=== PATIENT | female | born 1990 | race Caucasian/White ===

== ENCOUNTER 2016-10-05 14:43 | Inpatient (IN) | payer BC ==
[2016-10-05] MEDS ORDERED: ONDANSETRON HCL/PF 2 MG/ML VIAL IV PRN (17:25)
[2016-10-05] MEDS ORDERED: RINGER'S SOLUTION,LACTATED 1,000 ML IV PRN (17:25)
[2016-10-05] MEDS ORDERED: DEXTROSE 5%-LACTATED RINGERS 1,000 ML IV PRN (17:25)
[2016-10-05] MEDS ORDERED: BUTORPHANOL TARTRATE 2 MG/ML VIAL IV PRN (17:25)
[2016-10-05] MEDS ORDERED: LIDOCAINE HCL 50 ML VIAL PERI PRN (17:25)
[2016-10-05] MEDS ORDERED: OXYTOCIN/DEXTROSE 5%-WATER 30 UNITS/500 ML BAG IV ONE (17:25)
[2016-10-06] MEDS ORDERED: oxyCODONE HCL/ACETAMINOPHEN 1 TAB TABLET PO PRN ×2 (01:42)
[2016-10-06] MEDS ORDERED: BENZOCAINE/MENTHOL 81 SPRAY CAN TP PRN (01:42)
[2016-10-06] MEDS ORDERED: IBUPROFEN 800 MG TABLET PO PRN (01:42)
[2016-10-06] MEDS ORDERED: HYDROCORTISONE 30 APPL TUBE TP PRN (01:42)
[2016-10-06] MEDS ORDERED: OXYTOCIN/DEXTROSE 5%-WATER 30 UNITS/500 ML BAG IV ONE (01:42)
[2016-10-06] MEDS ORDERED: BISACODYL 10 MG SUPP.RECT RC PRN (01:42)
[2016-10-06] MEDS ORDERED: SENNOSIDES 8.6 MG TABLET PO PRN (01:42)
[2016-10-06] MEDS ORDERED: GLYCERIN/WITCH HAZEL LEAF 40 APPL BOX TP PRN (01:42)
--- NOTE | 2016-10-06 01:46 | OR ---
Operative Report - Dictated Report Narrative: Spontaneous Vaginal Delivery Viable female with APGARS of 5 at 1 minute and 8 at 5 minutes. Presentation was ALICJA. No nuchal cord was noted. The left anterior shoulder delivered with gentle downward traction followed by the remainder of the baby. Thick meconium was noted after delivery of the baby's head. Cord was then clamped and cut and baby was taken to the warmer. Time of delivery was 0 117. Weight: 2B determined Placenta was delivered spontaneously and intact. No lacerations were noted. Estimated blood loss: 200 ml Mother and baby tolerated delivery well. History for Definition: * The number of deliveries resulting in a live the patient experienced prior to current hospitalization * The previous delivery of live twins or any live multiple gestation is considered one live event. *If primagravida or nulliparous is documented select zero for the number of previous live births. Live Events: 0
[2016-10-06] MEDS: DOCUSATE SODIUM 100 MG CAPSULE PO SCH ×2 (09:44→20:52)
[2016-10-07] MEDS: DOCUSATE SODIUM 100 MG CAPSULE PO SCH ×2 (09:30→20:32)
--- NOTE | 2016-10-07 12:50 | PN ---
Subjective - Date and Time Seen Date: 10/07/16 Subjective Narrative: day 1, s/p doing well. no complaints. breastfedding. normal lochia. Objective - Vitals Vitals: Last Vital Signs Temp 36.7 C 10/07/16 07:06 Pulse 71 10/07/16 07:06 Resp 18 10/07/16 07:06 BP 125/73 10/07/16 07:06 Pulse Ox 98 10/07/16 07:06 - Exam Constitutional: Present: Alert, Oriented x3, Cooperative Respiratory: Present: no respiratory distress Cardiovascular/Chest: Present: normal peripheral pulses Abdomen: Present: soft, nontender, nondistended, other - fundus firm at umbilicus. Extremity: Present: normal range of motion, no pedal edema, no calf tenderness Skin Exam: Present: normal color, warm/dry, no cyanosis Eye contact: Present: cooperative, good eye contact, normal speech Assessment/Plan Plan Narrative: A: day 1, s/p doing well. Plan: routine care. ambulation encouraged. Fabiola Toscano MD
--- NOTE | 2016-10-08 08:57 | PN ---
Progess Note - Interim Narrative: 10/08/16 08:56 progress note Subjective: The patient is doing well. She is ambulating, voiding, tolerating by mouth. She has minimal pain and moderate lochia. Objective: General: No acute distress Abdomen: Soft, nontender, fundus is firm just below the umbilicus Extremities: minimal edema, nontender to palpation Assessment and plan: day 2 Feeding: Breast Pain: Controlled with by mouth medication control: Undecided Routine care.
[2016-10-08] MEDS: DOCUSATE SODIUM 100 MG CAPSULE PO SCH ×2 (09:40→20:07)
[2016-10-08 21:17] VITALS: BP 141/83
== END 2016-10-08 23:52 | disposition home or self-care (01) | DRG 775 ==
LOC: OBCLINIC 14:43 → UNDOADMIN 17:00 → OB 17:00 → UNDOADMIN 10-06 02:06 → OB 10-06 02:06 → MS 10-07 17:47
PROVIDERS: ADMIT Obstetrics & Gynecology Gynecologic Oncology; ATTEND Obstetrics & Gynecology Gynecologic Oncology
PROC: 10E0XZZ Delivery of Products of Conception, External Approach (ICD-10-PCS; principal; 2016-10-06)
PROC: 4A1HXCZ Monitoring of Products of Conception, Cardiac Rate, External Approach (ICD-10-PCS; 2016-10-06)
DX: O80 Encounter for full-term uncomplicated delivery (principal); Z3A.40 40 weeks gestation of pregnancy; Z37.0 Single live birth

== ENCOUNTER 2019-08-08 10:40 | Inpatient (IN) ==
[2019-08-08] MEDS ORDERED: ONDANSETRON 4 MG TAB.RAPDIS PO PRN (18:54)
[2019-08-08] MEDS ORDERED: RINGER'S SOLUTION,LACTATED 1,000 ML IV PRN (18:54)
[2019-08-08] MEDS ORDERED: BUTORPHANOL TARTRATE 2 MG/ML VIAL IV PRN ×2 (18:54)
[2019-08-08] MEDS ORDERED: LIDOCAINE HCL 50 ML VIAL PERI PRN (18:54)
[2019-08-08] MEDS ORDERED: RINGER'S SOLUTION,LACTATED 1,000 ML IV ONE (18:54)
[2019-08-08] MEDS ORDERED: OXYTOCIN/DEXTROSE 5%-WATER 30 UNITS/500 ML BAG IV ONE (18:54)
[2019-08-08 19:26] LABS: Cocaine Ur Negative (NEGATIVE); Urine Barbiturate Negative (NEGATIVE); Urine Benzodiazepines Negative (NEGATIVE); Urine Opiates Negative (NEGATIVE); Urine PCP Negative (NEGATIVE); Urine THC Negative (NEGATIVE)
[2019-08-08] MEDS: MISOPROSTOL 100 MCG TABLET VG PRN ×2 (19:28→23:54)
[2019-08-09] MEDS: MISOPROSTOL 100 MCG TABLET VG PRN (03:50)
[2019-08-09] MEDS ORDERED: MISOPROSTOL 100 MCG TABLET VG ONE ×2 (07:53→12:06)
--- NOTE | 2019-08-09 10:05 | HP ---
Chief Complaint - Chief Complaint Date of Service: 08/09/19 Time of Service: 09:54 Chief Complaint: Induction History of Present Illness: 29 year old at 37w 2d who presents to L&D for a medical induction of labor for Anti-k antibody. She is not feeling ctx. She denies vb or lof. Fetus is active. Medical History (Last Reviewed 08/09/19 @ 09:59 by Angie Castorena MD) Abnormal antibody titer Onset Date: ~2017 Anti K Conjunctivitis Onset Date: Unknown Dysmenorrhea Onset Date: Unknown Pharyngitis Onset Date: Unknown Prepatellar bursitis Onset Date: ~12/29/03 w/ascending lymphadenitis, septic Sinusitis Onset Date: Unknown Tonsillopharyngitis Onset Date: Unknown staphylococcus Onset Date: ~2003 right knee Surgical History: Surgical History (Last Reviewed 08/09/19 @ 09:59 by Angie Castorena MD) H/O right knee surgery Onset Date: ~2003 right knee infection Family History: Family History (Last Reviewed 08/09/19 @ 09:59 by Angie Castorena MD) Mother Asthma Eczema Hay fever Grandfather Hypertension paternal Grandfather Diabetes maternal Hypertension Grandmother Hypertension maternal Grandmother Hypertension paternal Social History: (Last Reviewed 08/09/19 @ 09:59 by Angie Castorena MD) Social History: Marital status: household members: spouse current occupational status: employed 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[employer] current occupational exposures/hazards: No Highest education level completed: Associate degree: occupat Service: No Tobacco: Smoking Status: Never smoker Alcohol: alcohol intake: never Substance Use: substance use type: does not use Dietary Habits: caffeine: No Review Of Systems (GEN) - Review of Systems Generalized/Overall Review: Present: No Symptoms Reported EENTM: Present: No Symptoms Reported Respiratory: Present: No Symptoms Reported Cardiac: Present: No Symptoms Reported Abdominal: Present: No Symptoms Reported Genitourinary: Present: No Symptoms Reported Musculoskeletal: Present: No Symptoms Reported Neurological: Present: No Symptoms Reported Skin: Present: No Symptoms Reported Endocrine: Present: No Symptoms Reported Allergies/Adverse Reactions: Allergies Allergy/AdvReac Type Severity Reaction Status Date / Time Penicillins Allergy unknown-as Verified 08/08/19 18:55 child Sulfa (Sulfonamide Allergy unknown-as Verified 08/08/19 18:55 Antibiotics) child Home Medications: HOME MEDICATIONS Vits96/Iron Fum/Folic [ S] 1 tab PO DAILY 10/05/16 [Last Taken Unknown] blood sugar diagnostic See Rx Instructions .ROUTE .MEDSUPPLY #10 ea 06/09/19 [Last Taken Unknown] blood-glucose meter See Rx Instructions .ROUTE .MEDSUPPLY #1 ea 06/09/19 [Last Taken Unknown] lancets 33 gauge See Rx Instructions .ROUTE .MEDSUPPLY #100 ea 06/09/19 [Last Taken Unknown] Exam - Exam Vital Signs: Vital Signs - Last Taken Temp 36.4 C 08/08/19 19:40 Pulse 82 08/08/19 19:40 Resp 18 08/08/19 19:40 BP 118/69 08/08/19 19:40 Pulse Ox 98 08/08/19 19:40 Constitutional: Present: Alert, Oriented x3, Cooperative, No distress ENT Exam: Present: hearing grossly normal Eye Exam: bilateral eye: normal inspection Neck: Present: normal inspection Back Exam: Present: normal inspection Respiratory: Present: lungs clear, normal breath sounds, no respiratory distress Cardiovascular/Chest: Present: regular rate, rhythm, no murmur Abdomen: Present: soft, nontender, nondistended /Rectal: Present: Exam deferred Extremity: Present: non-tender, no calf tenderness Skin Exam: Present: normal color, warm/dry, no cyanosis Appearance: Present: appropriate appearance, appropriate insight, neat, no memory impairment Eye contact: Present: cooperative, good eye contact Thoughts: Present: normal thought pattern Diagnostic Studies: Laboratory Results Urine Opiates Screen Negative (NEGATIVE) 08/08/19 19:15 Barbiturate Screen Negative (NEGATIVE) 08/08/19 19:15 Ur Phencyclidine Scrn Negative (NEGATIVE) 08/08/19 19:15 Urine Amphetamine Negative (NEGATIVE) 08/08/19 19:15 U Benzodiazepines Scrn Negative (NEGATIVE) 08/08/19 19:15 Urine Cocaine Screen Negative (NEGATIVE) 08/08/19 19:15 Urine Marijuana (THC) Negative (NEGATIVE) 08/08/19 19:15 Blood Type O Positive 08/08/19 19:15 Antibody Screen Positive 08/08/19 19:15 Assessment/Plan - Narrative Narrative: 29 year old at 37w 2d Medical IOL due to anti-k antibody. Titers lower than her last . She was followed by [facility] with MCA dopplers and all dopplers have been normal. [facility] recommended delivery after 37 weeks. She received steroids at 36 weeks. Recommendation for blood cord collection will be followed and if unable to collect cord blood the will be tested. The patient has received 4 doses of cytotec so far. Cervical exam will be reassessed at noon. GBS negative: prophylaxis not indicated
--- NOTE | 2019-08-09 15:56 | PN ---
Sivakumar Note - Interim Date: 08/09/19 Time: 15:55 Narrative: 08/09/19 15:55 Patient comfortable without epidural cvx /-3 AROM for clear fluid FHT reactive and reassuring
[2019-08-09] MEDS ORDERED: IBUPROFEN 800 MG TABLET PO PRN (20:10)
[2019-08-09] MEDS ORDERED: SENNOSIDES 8.6 MG TABLET PO PRN (20:10)
[2019-08-09] MEDS ORDERED: oxyCODONE HCL/ACETAMINOPHEN 1 TAB TABLET PO PRN (20:10)
[2019-08-09] MEDS ORDERED: BENZOCAINE/MENTHOL 81 SPRAY CAN TP PRN (20:10)
[2019-08-09] MEDS ORDERED: OXYTOCIN/DEXTROSE 5%-WATER 30 UNITS/500 ML BAG IV ONE (20:10)
[2019-08-09] MEDS ORDERED: BISACODYL 10 MG SUPP.RECT RC PRN (20:10)
[2019-08-09] MEDS ORDERED: HYDROCORTISONE 30 APPL TUBE TP PRN (20:10)
[2019-08-09] MEDS ORDERED: GLYCERIN/WITCH HAZEL LEAF 40 APPL BOX TP PRN (20:10)
--- NOTE | 2019-08-09 20:10 | OR ---
Operative Report - Dictated Report Narrative: Date of delivery: 08/09/2019 Time of delivery: 1945 Gender: female weight: 2952 grams APGARS: 8/9 Procedure: Description of the procedure: The patient is a 29 year old at 37w 2d who presented to L&D for a medical IOL due to anti-k antibody. She received four doses of cytotec. She was augmented with AROM. She progressed to complete dilation. She delivered a viable female infant in ALICJA presentation over an intact perineum. The shoulders delivered without difficulty followed by the rest of the . Cord clamping was delayed for 60 seconds. The cord was clamped and cut. Cord blood was collected for studies as recommended by [facility]. The placenta was delivered by expression and appeared intact. EBL: 200 mL Complications: none Specimens: placenta to pathology History for MU Definition: * The number of deliveries resulting in a live the patient experienced prior to current hospitalization * The previous delivery of live twins or any live multiple gestation is considered one live event. *If primagravida or nulliparous is documented select zero for the number of previous live births. Live Events: 2
[2019-08-09] MEDS: DOCUSATE SODIUM 100 MG CAPSULE PO SCH (23:18)
[2019-08-10] MEDS: DOCUSATE SODIUM 100 MG CAPSULE PO SCH (08:51)
--- NOTE | 2019-08-10 08:51 | PN ---
Subjective - Date and Time Seen Date: 08/10/19 Time: 08:50 Subjective Narrative: Patient without complaints Objective Objective Narrative: See vital signs - Review of Systems Generalized/Overall Review: Reports: No Symptoms Reported Misc: All systems neg except as marked - Vitals Vitals: Last Vital Signs Temp 36.8 C 08/10/19 06:55 Pulse 86 08/10/19 06:55 Resp 18 08/10/19 06:55 BP 137/69 08/10/19 06:55 Pulse Ox 97 08/10/19 06:55 - Exam Constitutional: Present: Alert, Oriented x3, Cooperative, No distress ENT Exam: Present: hearing grossly normal Abdomen: Present: soft, nontender, nondistended - fundus is firm Extremity: Present: non-tender, no calf tenderness Skin Exam: Present: normal color, warm/dry, no cyanosis Appearance: Present: appropriate appearance Eye contact: Present: cooperative, good eye contact, normal speech Thoughts: Present: normal thought pattern, no apparent hallucination Assessment/Plan Plan Narrative: PPD 1 s/p Doing well Discharge tomorrow
[2019-08-10] MEDS ORDERED: PRENATAL VITS96/IRON FUM/FOLIC 1 TAB TABLET PO SCH (09:00)
--- NOTE | 2019-08-11 08:52 | PN ---
Subjective - Date and Time Seen Date: 08/11/19 Time: 08:49 Subjective Narrative: Patient without complaints Objective Objective Narrative: See vital signs - Review of Systems Generalized/Overall Review: Reports: No Symptoms Reported Misc: All systems neg except as marked - Vitals Vitals: Last Vital Signs Temp 36.5 C 08/10/19 15:04 Pulse 71 08/11/19 01:23 Resp 16 08/11/19 01:23 BP 120/56 08/11/19 01:23 Pulse Ox 96 08/11/19 01:23 - Exam Constitutional: Present: Alert, Oriented x3, Cooperative, No distress ENT Exam: Present: hearing grossly normal Abdomen: Present: soft, nontender, nondistended - fundus is firm /Rectal: Present: Exam deferred Extremity: Present: non-tender, no calf tenderness Skin Exam: Present: normal color, warm/dry, no cyanosis Neurologic: Present: alert, normal mood/affect, oriented x 3 Appearance: Present: appropriate appearance, appropriate insight, neat Eye contact: Present: cooperative, good eye contact, normal speech Thoughts: Present: normal thought pattern Assessment/Plan Plan Narrative: PPD 2 s/p Doing well Discharge home Detailed discharge instructions given Follow-up in 6 weeks or sooner for any other concerns
[2019-08-11 13:28] VITALS: BP 143/70
== END 2019-08-11 11:45 | disposition home or self-care (01) | DRG 806 ==
LOC: OB 18:10
PROVIDERS: ADMIT Obstetrics & Gynecology; ATTEND Obstetrics & Gynecology
DX: Z3A.37 37 weeks gestation of pregnancy; O24.420 Gestational diabetes mellitus in childbirth, diet controlled; O36.0130 Maternal care for anti-D [Rh] antibodies, third trimester, not applicable or unspecified; Z37.0 Single live birth
CPT/HCPCS: 59025; 80307; 86850; 86870; 86886; 88307; 88888